=== PATIENT | male | born 1975 | race Two or more races ===

== ENCOUNTER 2019-06-20 06:20 | Emergency (ER) | payer OTHER ==
[~2019-06-20] VITALS: Ht 175.3 cm; Wt 127.0 kg
[2019-06-20 07:11] LABS: INFLUENZA A PATIENT NEGATIVE (NEGATIVE); INFLUENZA B PATIENT NEGATIVE (NEGATIVE)
[2019-06-20] MEDS ORDERED: IV NORMAL SALINE 1000ML BAG 1,000 ML IV SCH (07:34)
--- NOTE | 2019-06-20 07:41 | PHYS DOC ---
Past Medical History Past Medical History: Depression, Diabetes-Type II, Other Additional Past Medical Histor: FATTY LIVER, Past Surgical History: Cholecystectomy, Other Additional Past Surgical Histo: EAR Alcohol Use: None Adult General Chief Complaint Chief Complaint: FLU SYMPTOM HPI HPI Patient is a 43-year-old male, who presents to the emergency department for evaluation. He states for the past 24 hours, he has had myalgias, mild nasal congestion, as well as nausea, vomiting, and diarrhea. His emesis and stools have been nonbloody. He reports some generalized abdominal pain. He denies any chest pain or shortness of breath, has not had any fevers or chills. He did develop a nosebleed after an episode of vomiting in the emergency department, but that was after he had a flu swab done. He has not had any significant cough. There are no alleviating or exacerbating factors to his symptoms. Review of Systems Review of Systems Constitutional: Denies fever or chills [] Eyes: Denies change in visual acuity, redness, or eye pain [] HENT: Denies otalgia or sore throat [] Respiratory: Denies cough or shortness of breath [] Cardiovascular: The patient denies any shortness of breath, chest pain, palpitations, or orthopnea[] GI: As per history of present illness[] : Denies dysuria or hematuria [] Musculoskeletal: Denies back pain or joint pain, reports myalgias [] Integument: Denies rash or skin lesions [] Neurologic: Denies headache, focal weakness or sensory changes [] Endocrine: Denies polyuria or polydipsia [] All other systems were reviewed and found to be within normal limits, except as documented in this note. Current Medications Current Medications Current Medications Medications (Trade) Dose Ordered Sig/Sarah Start Time Stop Time Status Last Admin Dose Admin Iohexol (Omnipaque 300 Mg/ml) 75 ml 1X ONCE 06/20/19 08:30 06/20/19 08:31 DC 06/20/19 08:33 75 ML Ondansetron HCl (Zofran) 4 mg 1X ONCE 06/20/19 07:45 06/20/19 07:46 DC 06/20/19 07:54 4 MG Sodium Chloride 1,000 ml @ 1,000 mls/hr Q1H 06/20/19 07:34 06/20/19 08:33 DC 06/20/19 07:54 1,000 MLS/HR Allergies Allergies Allergies Coded Allergies Type Severity Reaction Last Updated Verified No Known Drug Allergies 01/11/14 No Physical Exam Physical Exam PHYSICAL EXAM: CONSTITUTIONAL: Well developed, well nourished HEAD: normocephalic, atraumatic EENT: PERRL, EOMI. Conjunctivae normal color, sclerae non-icteric; moist mucous membranes. A nasal clamp is in place. There is no active bleeding at this time. NECK: Supple, non-tender; no meningismus. LUNGS: Lungs CTA, breathing even and unlabored. Normal air movement. HEART: Regular rate and rhythm, no murmur CHEST: No deformity; non-tender ABDOMEN: The abdomen is soft, there is mild diffuse tenderness to palpation of the entire abdomen, primarily lower abdomen, without rebound or guarding, the upper abdomen is relatively soft and non-tender, no masses or bruits. Bowel sounds are present EXTREM: Normal ROM; no deformity, no calf tenderness. Normal pulses palpable in all extremities. There is no pedal edema. SKIN: No rash; no diaphoresis NEURO: Alert; normal speech and cognition; CN's grossly intact; strength grossly intact without focal deficit. BACK: No CVA TTP. Current Patient Data Vital Signs Vital Signs Date Time Temp Pulse Resp B/P (MAP) Pulse Ox O2 Delivery O2 Flow Rate FiO2 06/20/19 07:13 99.1 115 18 164/109 (127) 95 Room Air 99.1 Lab Values Laboratory Tests Test 06/20/19 06:22 06/20/19 07:50 Influenza Type A Antigen Negative (NEGATIVE) Influenza Type B Antigen Negative (NEGATIVE) White Blood Count 10.4 x10^3/uL (4.0-11.0) Red Blood Count 5.14 x10^6/uL (4.30-5.70) Hemoglobin 15.3 g/dL (13.0-17.5) Hematocrit 44.2 % (39.0-53.0) Mean Corpuscular Volume 86 fL (79-100) Mean Corpuscular Hemoglobin 30 pg (25-35) Mean Corpuscular Hemoglobin Concent 35 g/dL (31-37) Red Cell Distribution Width 14.6 % (11.5-14.5) H Platelet Count 348 x10^3/uL (140-400) Neutrophils (%) (Auto) 78 % (31-73) H Lymphocytes (%) (Auto) 16 % (24-48) L Monocytes (%) (Auto) 6 % (0-9) Eosinophils (%) (Auto) 0 % (0-3) Basophils (%) (Auto) 0 % (0-3) Neutrophils # (Auto) 8.0 x10^3/uL (1.8-7.7) H Lymphocytes # (Auto) 1.6 x10^3/uL (1.0-4.8) Monocytes # (Auto) 0.7 x10^3/uL (0.0-1.1) Eosinophils # (Auto) 0.0 x10^3/uL (0.0-0.7) Basophils # (Auto) 0.0 x10^3/uL (0.0-0.2) Sodium Level 139 mmol/L (136-145) Potassium Level 3.7 mmol/L (3.5-5.1) Chloride Level 100 mmol/L (98-107) Carbon Dioxide Level 24 mmol/L (21-32) Anion Gap 15 (6-14) H Blood Urea Nitrogen 16 mg/dL (8-26) Creatinine 1.1 mg/dL (0.7-1.3) Estimated GFR (Cockcroft-Gault) 73.4 BUN/Creatinine Ratio 15 (6-20) Glucose Level 162 mg/dL (70-99) H Lactic Acid Level 1.9 mmol/L (0.4-2.0) Calcium Level 9.2 mg/dL (8.5-10.1) Total Bilirubin 0.5 mg/dL (0.2-1.0) Aspartate Amino Transferase (AST) 59 U/L (15-37) H Alanine Aminotransferase (ALT) 87 U/L (16-63) H Alkaline Phosphatase 106 U/L (46-116) Total Protein 8.8 g/dL (6.4-8.2) H Albumin 3.9 g/dL (3.4-5.0) Albumin/Globulin Ratio 0.8 (1.0-1.7) L Lipase 53 U/L (73-393) L Laboratory Tests 06/20/19 07:50 Laboratory Tests 06/20/19 07:50 EKG EKG Normal sinus rhythm at a rate of 98 bpm, normal axis, intervals, nonspecific ST/T changes. Radiology/Procedures Radiology/Procedures PROCEDURE: CT ABD PELV W/ IV CONTRST ONLY EXAM: CT ABDOMEN/PELVIS WITH CONTRAST. HISTORY: Abdominal pain. TECHNIQUE: Computed tomography of the abdomen and pelvis was performed after the intravenous administration of iodinated contrast. One or more of the following individualized dose reduction techniques were utilized for this examination: 1. Automated exposure control. 2. Adjustment of the mA and/or kV according to patient size. 3. Use of iterative reconstruction technique. COMPARISON: None. FINDINGS: Lung windows through the visualized portions of the bases reveal mild atelectasis. Bone windows reveal no suspicious lesions. A 1.4 cm nodule in the left adrenal gland is indeterminate by CT criteria but likely a benign adenoma in the absence of known malignancy. The right adrenal gland is unremarkable. The gallbladder is surgically absent. Hypoattenuation of the hepatic parenchyma is consistent with at least mild diffuse hepatic steatosis. The spleen, pancreas and kidneys are unremarkable. There are no pathologically enlarged lymph nodes. Fluid throughout the colon is consistent with diarrhea. There is no small bowel obstruction or clear wall thickening. The appendix is not inflamed. IMPRESSION: 1. Findings suggesting diarrhea. Correlate for mild enterocolitis. 2. Mild diffuse hepatic steatosis. 3. A 1.4 cm left adrenal nodule is indeterminate by CT criteria, but likely a benign adenoma in the absence of known malignancy. MRI could further characterize only if there is persistent concern.[] Course & Med Decision Making Course & Med Decision Making Pertinent Labs and Imaging studies reviewed. (See chart for details) []9:00 AM:Patient remains stable. He is feeling significantly better. l Discussed test results, including CT findings, the need for close follow-up, and return precautions. Dragon Disclaimer Dragon Disclaimer This electronic medical record was generated, in whole or in part, using a voice recognition dictation system. Departure Departure Impression: Primary Impression: Nausea vomiting and diarrhea Disposition: HOME, SELF-CARE Condition: STABLE Patient Instructions: Viral Gastroenteritis, Viral Syndrome Scripts Ondansetron (ONDANSETRON ODT) 4 Mg Tab.rapdis 1 TAB PO PRN Q6-8HRS, #15 TAB Prov: JADEN WELSH MD 06/20/19 JADEN WELSH MD Jun 20, 2019 07:41
[2019-06-20] MEDS ORDERED: ONDANSETRON PF 4 MG/2 ML VIAL. IV ONE (07:45)
--- NOTE | 2019-06-20 07:54 | EKG ---
[facility] [address] [place] [address] Test Date: 2019-06-20 Test Time: 07:49:16 Pat Name: COLLIN GALLARDO Department: Room: Gender: M [employer] Att[employer]: : 1975 Requested By: JADEN WELSH Order Number: [id number] Reading MD: Measurements Intervals [place] Rate: 98 P: 42 IA: 112 QRS: 16 QRSD: 94 T: 8 QT: 348 QTc: 446 Interpretive Statements SINUS RHYTHM LEFT ATRIAL ABNORMALITY ABNORMAL ECG RI6.01 No previous ECG available for comparison
[2019-06-20 08:03] LABS: BASO % 0 % (0-3); EOS % 0 % (0-3); HEMATOCRIT 44.2 % (39.0-53.0); HEMOGLOBIN 15.3 g/dL (13.0-17.5); LYMPH # 1.6 x10^3/uL (1.0-4.8); LYMPH % 16 % (24-48); MEAN CORPUSCULAR HEMOGLOBIN 30 pg (25-35); MEAN CORPUSCULAR HGB CONC 35 g/dL (31-37); MEAN CORPUSCULAR VOLUME 86 fL (79-100); MONO # 0.7 x10^3/uL (0.0-1.1); MONO % 6 % (0-9); NEUT % 78 % (31-73); PLATELET COUNT 348 x10^3/uL (140-400); RED BLOOD COUNT 5.14 x10^6/uL (4.30-5.70); RED CELL DISTRIBUTION WIDTH 14.6 % (11.5-14.5); WHITE BLOOD COUNT 10.4 x10^3/uL (4.0-11.0)
[2019-06-20 08:11] LABS: CALCIUM 9.2 mg/dL (8.5-10.1); CREATININE 1.1 mg/dL (0.7-1.3); GFR 73.4; POTASSIUM 3.7 mmol/L (3.5-5.1)
[2019-06-20 08:17] LABS: ALBUMIN 3.9 g/dL (3.4-5.0); ALBUMIN/GLOBULIN RATIO 0.8 (1.0-1.7); TOTAL BILIRUBIN 0.5 mg/dL (0.2-1.0); TOTAL PROTEIN 8.8 g/dL (6.4-8.2)
[2019-06-20] MEDS ORDERED: IOHEXOL 300 MG/ML 100ML VIAL. IV ONE (08:30)
--- NOTE | 2019-06-20 08:49 | RAD ---
EXAM: CT ABDOMEN/PELVIS WITH CONTRAST. HISTORY: Abdominal pain. TECHNIQUE: Computed tomography of the abdomen and pelvis was performed after the intravenous administration of iodinated contrast. One or more of the following individualized dose reduction techniques were utilized for this examination: 1. Automated exposure control. 2. Adjustment of the mA and/or kV according to patient size. 3. Use of iterative reconstruction technique. COMPARISON: None. FINDINGS: Lung windows through the visualized portions of the bases reveal mild atelectasis. Bone windows reveal no suspicious lesions. A 1.4 cm nodule in the left adrenal gland is indeterminate by CT criteria but likely a benign adenoma in the absence of known malignancy. The right adrenal gland is unremarkable. The gallbladder is surgically absent. Hypoattenuation of the hepatic parenchyma is consistent with at least mild diffuse hepatic steatosis. The spleen, pancreas and kidneys are unremarkable. There are no pathologically enlarged lymph nodes. Fluid throughout the colon is consistent with diarrhea. There is no small bowel obstruction or clear wall thickening. The appendix is not inflamed. IMPRESSION: 1. Findings suggesting diarrhea. Correlate for mild enterocolitis. 2. Mild diffuse hepatic steatosis. 3. A 1.4 cm left adrenal nodule is indeterminate by CT criteria, but likely a benign adenoma in the absence of known malignancy. MRI could further characterize only if there is persistent concern. Electronically signed by: Niki Kirkpatrick MD (06/20/2019 8:46 AM) [facility]
[2019-06-20] MEDS ORDERED: ONDA4TAB12 PO (09:02)
[2019-06-20 10:00] VITALS: BP 158/86
== END 2019-06-20 10:06 | disposition home or self-care (01) ==
LOC: ER 06:20
DX: R11.2 Nausea with vomiting, unspecified (principal); R19.7 Diarrhea, unspecified; M79.10 Myalgia, unspecified site; R10.84 Generalized abdominal pain; R09.81 Nasal congestion; E11.9 Type 2 diabetes mellitus without complications; Z90.49 Acquired absence of other specified parts of digestive tract
CPT/HCPCS: 36415; 74177; 80053; 83605; 83690; 85025; 87804; 93005; 96361; 96374; 99285; J2405; J7030; Q9967